=== PATIENT | male | born 1965 | race Caucasian/White ===

== ENCOUNTER 2017-05-24 11:12 | Emergency (ER) | payer OTHER ==
[~2017-05-24] VITALS: Ht 182.9 cm; Wt 95.3 kg
[~2017-05-24 11:12] MED LIST: ASPIRIN E.C. 8181 MG PO; COREG 25MG25 MG/TAB PO; FOLIC ACID 11 MG/TA1 PO; LASIX 40MG TABL40 MG PO; NEPHRO-VITE1 TA1 PO
[2017-05-24 11:15] VITALS: TEMP 97
[2017-05-24] MEDS ORDERED: ZANTAC 150150 MG (11:32)
[2017-05-24] MEDS ORDERED: CATAPRES 0.1MG0.1 MG PO (11:32)
[2017-05-24] MEDS ORDERED: PROGRAF 0.5MG0.5 MG PO (11:33)
[2017-05-24 11:34] LABS: HEMATOCRIT 35.6 % (42.0-52.0); HEMOGLOBIN 11.2 g/dl (13.5-18.0); MEAN CELL VOLUME 88 fl (80.0-100.0); MEAN CORPUSCULAR HEMOGLOBIN 28 pg (27.0-31.0); MEAN CORPUSCULAR HGB CONC 32 g/dl (33.0-37.0); MEAN PLATELET VOLUME 8.7 fl (7.4-10.4); PLATELET COUNT 338 K/mm3 (130-400); RED BLOOD COUNT 4.04 M/mm3 (4.20-5.60); REDCELL DISTRIBUTION WIDTH-CV 15.1 % (11.5-14.5); WHITE BLOOD COUNT 8.7 K/mm3 (4.8-10.8)
[2017-05-24] MEDS ORDERED: PREDNISONE 5MG5 MG PO (11:34)
[2017-05-24] MEDS ORDERED: CELLCEPT 5500 MG/TAB PO (11:34)
[2017-05-24] MEDS ORDERED: PRINIVIL10 MG PO (11:35)
[2017-05-24] MEDS ORDERED: ZETIA 10MG TAB10 MG PO (11:35)
[2017-05-24 11:36] LABS: ADD PATHOLOGY DIFF REVIEW NO
[2017-05-24 11:39] LABS: INR 1.2 (0.8-3.0); PROTHROMBIN TIME 13.1 SECONDS (9.7-12.8)
[2017-05-24 11:55] LABS: ADJUSTED CALCIUM 9.1 mg/dL (8.4-10.2); ALANINE AMINOTRANSFERASE 46 U/L (21-72); ALBUMIN 2.5 gm/dL (3.5-5.0); ALKALINE PHOSPHATASE 58 U/L (50-136); ANION GAP 11 mmol/L (7-16); BILIRUBIN,TOTAL 1.7 mg/dL (0.0-1.0); BLOOD UREA NITROGEN 21 mg/dL (9-20); CALCIUM 7.9 mg/dL (8.4-10.2); CARBON DIOXIDE 17 mmol/L (22-30); CHLORIDE 104 mmol/L (98-107); CREATININE, serum 1.41 mg/dL (0.66-1.25); GLUCOSE 164 mg/dL (74-106); POTASSIUM 5.7 mmol/L (3.4-5.0); SODIUM 132 mmol/L (137-145); TOTAL PROTEIN 5.2 gm/dL (6.4-8.2)
[2017-05-24 11:58] LABS: ACETAMINOPHEN < 10 ug/mL (10-30); SALICYLATE < 1.0 mg/dL
[2017-05-24 12:02] LABS: BAND 16 % (0-10); BASOPHIL 1 % (0-2); EOSINOPHIL 2 % (0-4); NEUTROPHILS 65 % (42.0-75.2); TOTAL CELLS COUNTED 100
[2017-05-24 12:04] LABS: HYPOCHROMIA 1+; PLATELET ESTIMATE NORMAL (NORMAL)
[2017-05-24 12:06] LABS: OVALOCYTES 1+
[2017-05-24 12:12] VITALS: BP 109/81; PULSE 81
== END 2017-05-24 12:14 | disposition short-term general hospital (02) ==
LOC: COL.ER 11:12
PROVIDERS: Emergency Medicine
DX: S51.812A Laceration without foreign body of left forearm, initial encounter (principal); N18.6 End stage renal disease; Z79.82 Long term (current) use of aspirin; Z94.0 Kidney transplant status; Z99.2 Dependence on renal dialysis; Z98.890 Other specified postprocedural states; X78.9XXA Intentional self-harm by unspecified sharp object, initial encounter; Y92.009 Unspecified place in unspecified non-institutional (private) residence as the place of occurrence of the external cause
CPT/HCPCS: J2405

== ENCOUNTER → 2021-09-14 | Outpatient (CLI) | payer OTHER ==
[~2021-09-14] MED LIST changes: +CATAPRES 0.1MG0.1 MG PO; +CELLCEPT 5500 MG/TAB PO; +PREDNISONE 5MG5 MG PO; +PRINIVIL10 MG PO; +PROGRAF 0.5MG0.5 MG PO; +ZANTAC 150150 MG; +ZETIA 10MG TAB10 MG PO
== END ==
LOC: COL.VAS 12:48
DX: I25.10 Atherosclerotic heart disease of native coronary artery without angina pectoris (principal); I50.31 Acute diastolic (congestive) heart failure; I36.1 Nonrheumatic tricuspid (valve) insufficiency

== ENCOUNTER 2022-01-08 19:38 | Emergency (ER) | payer OTHER ==
[~2022-01-08] VITALS: Ht 182.9 cm; Wt 95.9 kg
[2022-01-08 19:54] VITALS: TEMP 98
[2022-01-08 20:01] LABS: COLLECTION METHOD CLEAN CATCH
[2022-01-08 20:06] LABS: PH 6 (5-8); SQUAMOUS EPITHELIAL None Seen /hpf (0-10); URINE APPEARANCE Hazy (CLEAR/HAZY); URINE BACTERIA None Seen /hpf (NONE SEEN); URINE BILIRUBIN Negative (NEGATIVE); URINE BLOOD 1+ (NEGATIVE); URINE COLOR Straw (YELLOW); URINE GLUCOSE 3+ (NEGATIVE); URINE KETONE Negative (NEGATIVE); URINE LEUKOCYTE ESTERASE Negative (NEGATIVE); URINE NITRATE Negative (NEGATIVE); URINE PROTEIN(semi-quant) 1+ (NEGATIVE); URINE UROBILINOGEN Negative (NEGATIVE)
[2022-01-08 20:53] LABS: BASO % 0.4 % (0.0-2.0); EOS % 0.4 % (0.0-4.0); GRAN # 5.3 K/mm3 (1.4-6.5); GRAN % 70.3 % (42.2-75.2); HEMATOCRIT 46.3 % (42.0-52.0); LYMPH # 1.4 K/mm3 (1.2-3.4); LYMPH % 18.4 % (20.0-51.0); MEAN CELL VOLUME 76 fl (80.0-100.0); MEAN CORPUSCULAR HEMOGLOBIN 28 pg (27-31); MEAN CORPUSCULAR HGB CONC 37 g/dl (33.0-37.0); MEAN PLATELET VOLUME 10.1 fl (7.4-10.4); MONO # 0.8 K/mm3 (0.1-0.6); MONO % 10.1 % (1.7-9.3); PLATELET COUNT 182 K/mm3 (130-400); RED BLOOD COUNT 6.11 M/mm3 (4.20-5.60); REDCELL DISTRIBUTION WIDTH-CV 13.3 % (11.5-14.5)
[2022-01-08 21:05] LABS: ALBUMIN 3.8 gm/dL (3.5-5.0); BILIRUBIN,TOTAL 1.6 mg/dL (0.2-1.2); CALCIUM 9.2 mg/dL (8.4-10.2); CREATININE, serum 2.77 mg/dL (0.72-1.25); POTASSIUM 3.6 mmol/L (3.5-4.5); TOTAL PROTEIN 6.7 gm/dL (6.2-8.1)
[2022-01-08 23:27] VITALS: BP 179/80; PULSE 89
== END 2022-01-08 23:29 | disposition short-term general hospital (02) ==
LOC: COL.ER 19:38
PROVIDERS: Emergency Medicine
DX: N17.9 Acute kidney failure, unspecified (principal); E11.00 Type 2 diabetes mellitus with hyperosmolarity without nonketotic hyperglycemic-hyperosmolar coma (NKHHC); R74.02 Elevation of levels of lactic acid dehydrogenase [LDH]; Z94.0 Kidney transplant status; Z28.310 Unvaccinated for COVID-19
CPT/HCPCS: J1815; J3480

== ENCOUNTER 2023-06-30 18:48 | Emergency (ER) | payer OTHER ==
[~2023-06-30] VITALS: Ht 182.9 cm; Wt 100.0 kg
[2023-06-30 18:54] VITALS: TEMP 98.3
[2023-06-30 20:21] VITALS: BP 145/75; PULSE 83
== END 2023-06-30 20:25 | disposition home or self-care (01) ==
LOC: COL.ER 18:48
DX: L98.8 Other specified disorders of the skin and subcutaneous tissue (principal)

== ENCOUNTER 2023-10-02 20:13 | Inpatient (IN) | payer OTHER ==
[~2023-10-02] VITALS: Ht 182.9 cm; Wt 90.9 kg
[2023-10-02 20:33] LABS: BASO # 0.1 K/mm3 (0.0-0.2); BASO % 0.4 % (0.0-2.0); EOS % 0.1 % (0.0-4.0); GRAN # 10.6 K/mm3 (1.4-6.5); GRAN % 83.6 % (42.2-75.2); LYMPH # 1.3 K/mm3 (1.2-3.4); LYMPH % 10.3 % (20.0-51.0); MEAN CELL VOLUME 79 fl (80.0-100.0); MEAN CORPUSCULAR HGB CONC 28 g/dl (33.0-37.0); MEAN PLATELET VOLUME 8.7 fl (7.4-10.4); MONO # 0.6 K/mm3 (0.1-0.6); PLATELET COUNT 342 K/mm3 (130-400); RED BLOOD COUNT 3.48 M/mm3 (4.20-5.60)
[2023-10-02 20:34] LABS: HEMATOCRIT 27.6 % (42.0-52.0); HEMOGLOBIN 7.8 g/dl (13.5-18.0); MEAN CORPUSCULAR HEMOGLOBIN 22 pg (27-31)
[2023-10-02 20:41] LABS: PROTHROMBIN TIME 11.4 SECONDS (9.7-12.8)
[2023-10-02 20:50] LABS: ALBUMIN 2.6 gm/dL (3.5-5.0); BILIRUBIN,TOTAL 0.8 mg/dL (0.2-1.2); C-REACTIVE PROTEIN 0.2 mg/dL (0.00-0.50); CREATININE, serum 4.73 mg/dL (0.72-1.25); POTASSIUM 4.8 mmol/L (3.5-4.5); TOTAL PROTEIN 5.2 gm/dL (6.2-8.1)
[2023-10-02] MEDS ORDERED: PLAVIX 75MG TAB75 MG PO (23:49)
[2023-10-02] MEDS ORDERED: BUMEX 1MG TA1 MG/TA1 PO (23:50)
[2023-10-02] MEDS ORDERED: LEXAPRO20 MG PO (23:50)
[2023-10-02] MEDS ORDERED: CRESTOR40 MG PO (23:51)
[2023-10-02] MEDS ORDERED: ZYLOPRIM 100MG100 MG PO (23:51)
[2023-10-02] MEDS ORDERED: LATUDA20 MG PO (23:52)
[2023-10-02] MEDS ORDERED: ISOSORBIDE MON120 MG PO (23:53)
[2023-10-02] MEDS ORDERED: PRILOSEC 20MG20 MG PO (23:53)
[2023-10-03] VITALS (25 sets, daily range): BP systolic 124–162; BP diastolic 57–80; PULSE 85–956; TEMP 97.6–98.4
--- NOTE | 2023-10-03 00:30 | NUR ---
Patient arrived to the unit at this time. Denies any pain at this time. States he is hungry, food and drink provided. Assessment and med rec compelte. IV in right AC flushes easily with no complications. Refer to nursing note for skin assessment. Oriented patinet to room, call light, bed, phone, and bathroom. Call light and personal items in reach. Bed in low position and bed alarm on.
--- NOTE | 2023-10-03 00:30 | NUR ---
SKIN ASSESSMENT Posterior head- Scab, open w/ small amount bloody drainage Left shoulder- Scab/ incision, 6 stitches open to air Left jaw- Scab, intact Mid right chest- Scab, open w/ small amount bloody drainage Left posterior shoulder- Large scar from tumor removal Mid left back- Scar/ incision, intact
--- NOTE | 2023-10-03 07:15 | NUR ---
Patient resting in bed. States his chest pain got better after reciving his Isosorbide but is now rating it at 3/10 again and states it is starting to creep its way back up. Denies any other pain at this time. Patient recieved 1 unit of PRBC over night, pending Hgb recheck. IVF infusing in right AC IV with no issues. Call light and personal items in reach. Bed in low position and bed alarm on. Blood transfusion began at 0436 and finished at 0703. Procedure explained prior to administration and consent form lisa. Transfusion initiated with two nurse verification. Vital signs stable and patient did not experience any difficulities realated to the blood trasfusion. Pre and post vitals documented.
[2023-10-03 08:08] LABS: BASO % 0.3 % (0.0-2.0); EOS % 0.1 % (0.0-4.0); GRAN # 10.6 K/mm3 (1.4-6.5); GRAN % 81.6 % (42.2-75.2); LYMPH # 1.6 K/mm3 (1.2-3.4); MEAN CELL VOLUME 75 fl (80.0-100.0); MEAN CORPUSCULAR HGB CONC 31 g/dl (33.0-37.0); MEAN PLATELET VOLUME 8.5 fl (7.4-10.4); MONO # 0.7 K/mm3 (0.1-0.6); MONO % 5.6 % (1.7-9.3); PLATELET COUNT 289 K/mm3 (130-400); RED BLOOD COUNT 3.25 M/mm3 (4.20-5.60); REDCELL DISTRIBUTION WIDTH-CV 17.9 % (11.5-14.5)
[2023-10-03 08:09] LABS: HEMATOCRIT 24.5 % (42.0-52.0); HEMOGLOBIN 7.6 g/dl (13.5-18.0); MEAN CORPUSCULAR HEMOGLOBIN 23 pg (27-31)
[2023-10-03 08:23] LABS: CREATININE, serum 5.06 mg/dL (0.72-1.25); POTASSIUM 4.2 mmol/L (3.5-4.5)
[2023-10-03 08:29] LABS: TROPONIN-I 0.504 ng/mL (0.00-0.033)
--- NOTE | 2023-10-03 09:09 | NUR ---
CRITICAL TROPONIN OF 0.504. NOTIFIED PROVIDER. AWARE.
--- NOTE | 2023-10-03 10:10 | NUR ---
SKIN ASSESSMENT CANCER LESIONS: LSHOULDER SQUAMOUS REMOVAL HAS 6 STITCHES OPEN TO AIR. NO DRAINAGE. ED STITCHED BECAUSE THE OPEN SITE WOULD NOT STOP BLEEDING SEROSANGUINOS FLUID MID UPPER CHEST OPEN SCAB SQUAMOUS CELL CA POSTERIOR HEAD OPEN SCAB SQUAMOUS CA NOT DRAINING LEFT JAW SCAB CARLI NO DRAINAGE SQUAMOUS CA L POST SHOULDER SCARRING FROM LARGE TUMOR REMOVAL L MID BACK SCAR/INCISION FROM SQUAMOUS CELL TUMOR REMOVAL PATIENT DOES NOT HAVE ANY SWELLING IN LOWER EXTREMITIES. NO BRUISING.
--- NOTE | 2023-10-03 11:05 | NUR ---
Initial visit; Patient very pleasant with a lot of amita. Has had a kidney transplant 20 years ago and now has cancer in numerous areas of his body. He is taking it in stride as numerous health issues have plagued him throughout his life and today, in the hospital he is celebrating his 58th Birthday. told him he still has a mission in life and she knows one of them is as a witness of [employer] and what it says about him and what God does through him. offered prayer for healing and Blessings and will keep "Zach" in her prayers.
--- NOTE | 2023-10-03 13:07 | NUR ---
KAMI Student identified self as KAIM Student and completed intake with patient at bedside. Patient lives in [place], [place] with his Demetria (ph#[phone]) and their daughter. Patient stated that he receives primary care through the [facility]. Patient stated that he also receives medications through the [facility]. Patient stated that [facility]. Patient stated that his helps him with all ADLs. He stated that they are supposed to be meeting with caregivers support through the [facility] in October to discuss getting additional help. Patient stated that he believes he has a DPOA-HC form completed and thinks it would be appointed to his Demetria. Patient stated that he previously was receiving PT through the [facility], but just recently started doing PT through [facility]. Patient is covered by [employer] for insurance. Patient stated that he plans to return home and continue with outpatient PT at time of discharge. Discharge Plan: Home with Outpatient PT
--- NOTE | 2023-10-03 14:04 | NUR ---
BLOOD TRANSFUSION COMPLETE AT 1330. PATIENT IS RESTING IN BED. NO ISSUES POST TRANSFUSION. VSS.
[2023-10-03 17:10] LABS: HEMATOCRIT 27.4 % (42.0-52.0); HEMOGLOBIN 8.6 g/dl (13.5-18.0)
--- NOTE | 2023-10-03 18:26 | NUR ---
CAME UP TO NURSING STATION TO SPEAK WITH NURSING ABOUT PATIENT PREVIOUS HEART CATHETERIZATION AT [facility] IN [place]. STATED THAT PATIENT HAD A STROKE DURING THE PROCEDURE AND HAD TO GO TO REHABILIATION POST PROCEDURE. PATIENT WAS WITHIN THE ALOTTED 2 HOUR PERIOD FOR TPA, BUT DID HAVE SOME RESIDUAL POST TREATMENT. NURSING WILL RELAY TO MERCHANDISE TEAM MANAGER.
--- NOTE | 2023-10-03 21:00 | NUR ---
Patient resting in bed. Denies any pain or needs at this time. IV in right AC infusing with no complicaitons. IV in right hand flushes easily with no complications. Assessment complete. Call light and personal items in reach. Bed in low position and bed alarm on.
[2023-10-04] VITALS (18 sets, daily range): BP systolic 123–167; BP diastolic 64–93; PULSE 89–99; TEMP 98.1–98.7
--- NOTE | 2023-10-04 04:44 | NUR ---
Patient complaining of chest pain. VSS. No change on telemetry. Call placed to Dr. Nicole, new order for Nitro received, and given per orders. Called RT and ordered EKG.
--- NOTE | 2023-10-04 06:00 | NUR ---
Patient resting in bed. Denies any pain or needs at this time. Patient only had one episode of chest pain, got PRN nitro ordered. Nitro worked. Call light and personal items in reach. Bed in low position and bed alarm on.
--- NOTE | 2023-10-04 07:11 | NUR ---
NURSING SKIN ASSESSMENT LEFT SHOULDER- SIX STITCHES WERE PLACED IN THE ED BECAUSE IT WAS OOZING BLOOD, THEY COULD NOT GET IT TO STOP. STITCHES ARE CLEAN,DRY, AND INTACT, MID UPPER CHEST - SQUAMOUS CELL CA SCABBED. NOT DRAINING, CARLI POSTERIOR HEAD -SQUAMOUS CELL CA SCABBED. NOT DRAINING, FRENCH WEAVER LEFT JAW AMONGST FACIAL HAIR- SQUAMOUS CELL CANCER SCABBED, FRENCH WEAVER NOT DRAINING POST SHOULDER LEFT- SCAR FROM TUMOR REMOVAL MID BACK LEFT SIDE- SCAR FROM LARGE TUMOR REMOVAL BILATERAL LEGS ARE NORMAL IN COLOR, NO EDEMA LEFT AV FISTULA IS NOT IN USE, BUT IT IS BULGING, YOU CAN FEEL PULSE, AND BRUIT. PATIENT STATES THAT HE GOES TO CLINIC TO DRAIN IT. THE LEFT ARM HAS LYMPHEDEMA.
[2023-10-04 08:50] LABS: BASO % 0.4 % (0.0-2.0); EOS # 0.1 K/mm3 (0.0-0.7); EOS % 0.5 % (0.0-4.0); GRAN # 8.6 K/mm3 (1.4-6.5); GRAN % 77.5 % (42.2-75.2); LYMPH # 1.6 K/mm3 (1.2-3.4); LYMPH % 14.8 % (20.0-51.0); MEAN CELL VOLUME 77 fl (80.0-100.0); MEAN CORPUSCULAR HGB CONC 31 g/dl (33.0-37.0); MEAN PLATELET VOLUME 8.6 fl (7.4-10.4); MONO # 0.7 K/mm3 (0.1-0.6); MONO % 6.5 % (1.7-9.3); PLATELET COUNT 235 K/mm3 (130-400); RED BLOOD COUNT 2.93 M/mm3 (4.20-5.60); REDCELL DISTRIBUTION WIDTH-CV 17.4 % (11.5-14.5)
[2023-10-04 09:00] LABS: MEAN CORPUSCULAR HEMOGLOBIN 24 pg (27-31)
[2023-10-04 09:01] LABS: HEMATOCRIT 22.5 % (42.0-52.0)
[2023-10-04 09:30] LABS: CALCIUM 7.8 mg/dL (8.4-10.2); CREATININE, serum 4.84 mg/dL (0.72-1.25); MAGNESIUM 2.5 mg/dL (1.6-2.6); POTASSIUM 3.9 mmol/L (3.5-4.5)
--- NOTE | 2023-10-04 10:07 | NUR ---
Follow-up visit; Patient thanked Director Of Emergency Nursing for bringing up balloons and a card yesterday for his Birthday. He was having tests and said he appreciated coming back to his room knowing someone was thinking of him and seeing the balloons lightened his spirit. Director Of Emergency Nursing prayed today for healing and God's presence to be felt by "Zach." Patient is experiencing more heart issues and appears to be more fearful. Director Of Emergency Nursing assured him he remains in her prayers and hopes for more help for him from his familiar medical team.
--- NOTE | 2023-10-04 16:00 | NUR ---
PATIENT RECEIVED DISCHARGE INFORMATION. ACKNOWLEDGED UNDERSTANDING OF DISCHARGE INSTRUCTIONS AND FOLLOW UP APPOINTMENTS. PATIENT COMING AFTER BUSINESS HOURS TO PLASTIC TOOL MAKER .
--- NOTE | 2023-10-04 19:23 | NUR ---
Patient left the unit at this time with and all belongings.
== END 2023-10-04 19:27 | disposition home or self-care (01) | DRG 281 ==
LOC: COL.ER 20:13 → MEDICAL 21:32
PROVIDERS: Emergency Medicine; Internal Medicine; Physician Assistant; ADMIT Internal Medicine
DX: I95.1 Orthostatic hypotension (principal); I21.4 Non-ST elevation (NSTEMI) myocardial infarction; D62 Acute posthemorrhagic anemia; N17.9 Acute kidney failure, unspecified; Z94.0 Kidney transplant status; I25.10 Atherosclerotic heart disease of native coronary artery without angina pectoris; Z95.1 Presence of aortocoronary bypass graft; R73.9 Hyperglycemia, unspecified; Z86.73 Personal history of transient ischemic attack (TIA), and cerebral infarction without residual deficits; I10 Essential (primary) hypertension; E78.5 Hyperlipidemia, unspecified
CPT/HCPCS: A9270; A9500-JZ; J2270; J2405; J2785; J7030; J7507; J7512; J7517; P9016

== ENCOUNTER 2023-11-12 21:36 | Inpatient (IN) | payer OTHER ==
[~2023-11-12] VITALS: Ht 182.9 cm; Wt 95.6 kg
[~2023-11-12 21:36] MED LIST changes: +BUMEX 1MG TA1 MG/TA1 PO; +CRESTOR40 MG PO; +ISOSORBIDE MON120 MG PO; +LATUDA40 MG PO; +LEXAPRO20 MG PO; +PLAVIX 75MG TAB75 MG PO; -PREDNISONE 5MG5 MG PO; +PREDNISONE10 MG PO; +PRILOSEC 20MG20 MG PO; +ZYLOPRIM 100MG100 MG PO
[2023-11-12 23:07] LABS: MEAN CELL VOLUME 75 fl (80.0-100.0); MEAN CORPUSCULAR HGB CONC 29 g/dl (33.0-37.0); MEAN PLATELET VOLUME 9.4 fl (7.4-10.4); PLATELET COUNT 190 K/mm3 (130-400); RED BLOOD COUNT 3.76 M/mm3 (4.20-5.60); REDCELL DISTRIBUTION WIDTH-CV 17.2 % (11.5-14.5)
[2023-11-12 23:11] LABS: HEMATOCRIT 28.2 % (42.0-52.0); HEMOGLOBIN 8.1 g/dl (13.5-18.0); MEAN CORPUSCULAR HEMOGLOBIN 22 pg (27-31)
[2023-11-12 23:25] LABS: ALBUMIN 2.3 gm/dL (3.4-4.8); BILIRUBIN,TOTAL 0.4 mg/dL (0.2-1.2); CALCIUM 8.3 mg/dL (8.4-10.2); CREATININE, serum 3.27 mg/dL (0.72-1.25); POTASSIUM 4.1 mmol/L (3.5-4.5); TOTAL PROTEIN 5.2 gm/dL (6.2-8.1)
[2023-11-12 23:35] LABS: BAND 6 % (0-10); LYMPHOCYTE 4 % (20.0-51.0); NEUTROPHILS 87 % (42.0-75.2); OVALOCYTES 1+; PLATELET ESTIMATE NORMAL (NORMAL)
[2023-11-12 23:36] LABS: ANISOCYTOSIS 1+
[2023-11-12 23:41] LABS: TROPONIN-I 0.202 ng/mL (0.00-0.033)
[2023-11-13] VITALS (20 sets, daily range): BP systolic 136–169; BP diastolic 56–80; PULSE 81–95; TEMP 97.6–98.6
[2023-11-13] MEDS ORDERED: Isosorbide Mononitrate CR (24-HR) 60 MG TAB PO SCH (00:20)
[2023-11-13] MEDS ORDERED: Carvedilol 25 MG TAB PO SCH (00:21)
[2023-11-13] MEDS ORDERED: Escitalopram 10 MG TAB PO SCH (00:22)
[2023-11-13] MEDS ORDERED: Lurasidone 20 MG TABLET PO SCH (00:23)
[2023-11-13] MEDS ORDERED: RAPAMUNE1 MG PO (00:25)
[2023-11-13] MEDS ORDERED: Bumetanide 1 MG/4 ML VIAL IV SCH ×2 (00:30→21:00)
[2023-11-13] MEDS ORDERED: Albuterol/Ipratropium 3 MG-0.5 MG/3 ML Neb Soln IH PRN (00:45)
[2023-11-13 01:34] LABS: MAGNESIUM 2.6 mg/dL (1.6-2.6); PHOSPHOROUS 3.3 mg/dL (2.3-4.7)
[2023-11-13 01:54] LABS: THYROID STIMULATING HORMONE 0.904 uIU/mL (0.350-4.940)
[2023-11-13] MEDS ORDERED: Albuterol/Ipratropium 3 MG-0.5 MG/3 ML Neb Soln IH SCH (02:00)
[2023-11-13] MEDS ORDERED: dexAMETHasone 10 MG/ML VIAL IV SCH (02:00)
--- NOTE | 2023-11-13 02:31 | NUR ---
Patient arrived to medical unit from ER at approximately 0100. Alert and oriented, and able to make needs known. Denies having pain and discomfort. Peripheral INT to right forearm. Has AV fistula to left upper arm. Lymphedema to LUE. Reports SOB, worse with exertion, as well as cough with thick yellow sputum. LS expiratory wheezes. HRR. BSAx4. Patient given medications per orders. Aware of need for UA. brought in home medications needed that are not on formulary. Will give to Javascript Developer to take to pharmacy. Patient in bed with call light within reach.
--- NOTE | 2023-11-13 04:00 | NUR ---
Troponin called to RADHA Davidson.
[2023-11-13 04:38] LABS: COLLECTION METHOD CLEAN CATCH
[2023-11-13 04:47] LABS: URINE APPEARANCE CLEAR (CLEAR/HAZY); URINE BLOOD TRACE (NEGATIVE); URINE COLOR YELLOW (YELLOW); URINE GLUCOSE 2+ (NEGATIVE); URINE KETONE NEGATIVE (NEGATIVE); URINE NITRATE NEGATIVE (NEGATIVE); URINE PROTEIN(semi-quant) 3+ (NEGATIVE); URINE UROBILINOGEN 0.2 E.U/dL (0.2-1.0)
[2023-11-13 05:15] LABS: SQUAMOUS EPITHELIAL 0-2 /hpf (0-10); URINE BACTERIA MODERATE /hpf (NONE SEEN); URINE RBC 0-2 /hpf (0-2); URINE WBC 0-2 /hpf (0-2)
[2023-11-13] MEDS ORDERED: Patient's Own Medication Item PO SCH ×3 (07:00→21:00)
[2023-11-13] MEDS ORDERED: predniSONE 10 MG TAB PO SCH (08:00)
[2023-11-13 08:07] LABS: MEAN CELL VOLUME 76 fl (80.0-100.0); MEAN CORPUSCULAR HGB CONC 28 g/dl (33.0-37.0); MEAN PLATELET VOLUME 9.8 fl (7.4-10.4); PLATELET COUNT 181 K/mm3 (130-400); RED BLOOD COUNT 3.38 M/mm3 (4.20-5.60); REDCELL DISTRIBUTION WIDTH-CV 17.2 % (11.5-14.5)
[2023-11-13 08:09] LABS: HEMATOCRIT 25.8 % (42.0-52.0); HEMOGLOBIN 7.2 g/dl (13.5-18.0); MEAN CORPUSCULAR HEMOGLOBIN 21 pg (27-31)
[2023-11-13 08:16] LABS: CALCIUM 7.8 mg/dL (8.4-10.2); CREATININE, serum 3.02 mg/dL (0.72-1.25); POTASSIUM 4.3 mmol/L (3.5-4.5)
[2023-11-13 08:37] LABS: BAND 8 % (0-10); LYMPHOCYTE 2 % (20.0-51.0); NEUTROPHILS 87 % (42.0-75.2); OVALOCYTES 2+; PLATELET ESTIMATE NORMAL (NORMAL); SCHISTOCYTES 1+
--- NOTE | 2023-11-13 08:47 | NUR ---
ASSESSMENT COMPLETE. PATIENT HOME MEDS WERE RETURNED TO MED ROOM FROM PHARMACY THIS MORNING. PATIENT STATES HIS SHORTNESS OF BREATH IS FEELING SLIGHTLY BETTER THIS MORNING AND HIS COUGH HAS NOT BEEN PRODUCTIVE. CALL LIGHT WITHIN REACH, DENIES ANY FURTHER NEEDS AT THIS TIME.
[2023-11-13] MEDS ORDERED: Clopidogrel 75 MG TAB PO SCH (09:00)
[2023-11-13] MEDS ORDERED: Polyethylene Glycol 3350 17 GM PDS PO SCH (09:00)
[2023-11-13] MEDS ORDERED: Allopurinol 100 MG TAB PO SCH (09:00)
[2023-11-13] MEDS ORDERED: BUMEX2 MG PO (11:18)
[2023-11-13] MEDS ORDERED: RAPAMUNE2 MG PO (11:19)
[2023-11-13] MEDS ORDERED: Glucagon 1 MG VIAL IM PRN (11:45)
[2023-11-13] MEDS ORDERED: Dextrose 50% Water 25 GM/50 ML SYRINGE IV PRN (11:45)
[2023-11-13] MEDS ORDERED: Dextrose (Glucose) 15 GM (4 x 3.75 GM) Chewable TABLET PACK PO PRN (11:45)
[2023-11-13] MEDS ORDERED: Insulin Lispro (HumaLOG) SQ SCH (12:00)
--- NOTE | 2023-11-13 12:04 | NUR ---
PATIENT'S BLOOD GLUCOSE HAS BEEN STEADLY INCREASING AND MOST RECENT READING WAS 328. THIS RN DISCUSSED CHANGE WITH DR. Demetrius MARTI, NEW ORDERS RECEIVED AND ACKNOWLEDGED.
[2023-11-13] MEDS ORDERED: Bumetanide 1 MG/4 ML VIAL IV ONE (13:00)
--- NOTE | 2023-11-13 15:32 | NUR ---
shellfish bed worker notes patient is in isolation and did not answer his room phone. KAMI called , Maddie [phone] to discuss intake information. She reports her and patient live together in [place]. [facility] [place] and also gets medications from there with no issues. She reports patient does not have a DPOA-HC, but she would like to have herself listed. KAMI advised as default NOK, she is DPOA. Maddie verbalized understanding. She states patient gets full assistance with ADLS due to increase in weakness. She states they have gotten caregiver support through the [facility]. Pt does not have any DME. KAMI passed on ADL concerns to KIM Tate to have PT/OT ordered to assess patient due to assistance needed at home and weakness. PT/OT pending Discharge Plan: [facility] after gerri
--- NOTE | 2023-11-13 19:10 | NUR ---
RADHA Davidson notified for Troponin.
[2023-11-13 19:54] LABS: HEMATOCRIT 27.4 % (42.0-52.0)
--- NOTE | 2023-11-13 23:08 | NUR ---
Patient assessed around 2014. Alert and oriented, and able to make needs known. Aware of droplet isolation for Coronavirus, and updated via phone. Denies having pain and discomfort. Peripheral INT to right forearm. AV fistula to LUE. Lymphedema continues to LUE. Reports SOB and dyspnea has gotten better. Faint wheezes noted. Respirations even and unlabored. HRR. BSAx4. Voices no questions, needs, or concerns at this time. In bed with call light within reach.
[2023-11-14] VITALS (9 sets, daily range): BP systolic 132–157; BP diastolic 66–76; PULSE 85–88; TEMP 97.3–98.2
[2023-11-14 05:32] LABS: MEAN CELL VOLUME 74 fl (80.0-100.0); MEAN CORPUSCULAR HGB CONC 30 g/dl (33.0-37.0); MEAN PLATELET VOLUME 10.1 fl (7.4-10.4); PLATELET COUNT 189 K/mm3 (130-400); RED BLOOD COUNT 3.37 M/mm3 (4.20-5.60); REDCELL DISTRIBUTION WIDTH-CV 17.2 % (11.5-14.5)
[2023-11-14 05:38] LABS: HEMATOCRIT 24.9 % (42.0-52.0); HEMOGLOBIN 7.4 g/dl (13.5-18.0); MEAN CORPUSCULAR HEMOGLOBIN 22 pg (27-31)
[2023-11-14 05:45] LABS: CREATININE, serum 3.17 mg/dL (0.72-1.25); POTASSIUM 4.1 mmol/L (3.5-4.5)
[2023-11-14 06:11] LABS: ANISOCYTOSIS 1+; HYPOCHROMIA 3+; LYMPHOCYTE 5 % (20.0-51.0); MICROCYTOSIS 1+; NEUTROPHILS 91 % (42.0-75.2); OVALOCYTES 1+; PLATELET ESTIMATE NORMAL (NORMAL); TEAR DROP CELLS 1+
--- NOTE | 2023-11-14 06:35 | NUR ---
Patient has denied pain and discomfort this shift. Reports not sleeping well this shift. Voices no questions, needs, or concerns at this time. In bed with call light within reach. Bed alarm on.
--- NOTE | 2023-11-14 12:31 | NUR ---
flying squad worker notes PT reccomends Outpatient PT for Jose. SW attempted to call pt's room phone and patient's cell phone with no response. SW left a voicemail. SW called , Maddie to provide an update. She reports patient is already established with [facility] on [address]. SW called [facility] and confirmed. They verified patient is established and knows to call to schedule his next appointments. Discharge Plan: Home with OP PT continued
[2023-11-14] MEDS ORDERED: PROAIR HFA0.09 MG/AC IH (14:19)
--- NOTE | 2023-11-14 17:02 | NUR ---
PATIENT RECEIVED DISCHARGE INSTRUCTIONS, ACKNOWLEDGED UNDERSTANDING. PATIENT GOT A PAPER PRESCRIPTION FOR ALBUTEROL. PATIENT STATED HE HAS FOLLOW UP APPOINTMENTS AT THE [facility]READ[facility] SCHEDUL[facility]. PATIENT WILL BE A LATE DISCHARGE AT 7:30PM WITH . IV DISCONTINUED.
--- NOTE | 2023-11-14 19:42 | NUR ---
Patient left unit at this time via wheelchair with this nurse. Day nurse provided all discharge instructions and removed IV. Patient states he does not have any further questions at this time. Patient left with via vehicle from ER entrance.
== END 2023-11-14 19:42 | disposition home or self-care (01) | DRG 291 ==
LOC: COL.ER 21:36 → MEDICAL 11-13 00:36
PROVIDERS: Emergency Medicine; Nurse Practitioner Family; ADMIT Internal Medicine
PROC: 30233N1 Transfusion of Nonautologous Red Blood Cells into Peripheral Vein, Percutaneous Approach (ICD-10-PCS; principal; 2023-11-13)
DX: I13.0 Hypertensive heart and chronic kidney disease with heart failure and stage 1 through stage 4 chronic kidney disease, or unspecified chronic kidney disease (principal); I50.23 Acute on chronic systolic (congestive) heart failure; Z94.0 Kidney transplant status; N17.9 Acute kidney failure, unspecified; Z20.822 Contact with and (suspected) exposure to COVID-19; D50.9 Iron deficiency anemia, unspecified; R73.9 Hyperglycemia, unspecified; E78.5 Hyperlipidemia, unspecified; N18.9 Chronic kidney disease, unspecified; I42.9 Cardiomyopathy, unspecified; I89.0 Lymphedema, not elsewhere classified; I08.1 Rheumatic disorders of both mitral and tricuspid valves; I25.10 Atherosclerotic heart disease of native coronary artery without angina pectoris; Z86.73 Personal history of transient ischemic attack (TIA), and cerebral infarction without residual deficits; Z85.828 Personal history of other malignant neoplasm of skin; Z85.47 Personal history of malignant neoplasm of testis; Z88.8 Allergy status to other drugs, medicaments and biological substances; Z95.1 Presence of aortocoronary bypass graft; Z79.02 Long term (current) use of antithrombotics/antiplatelets; Z79.82 Long term (current) use of aspirin; Z79.899 Other long term (current) drug therapy
CPT/HCPCS: A9270; A9284; J1100; J1815; J7512; P9016